=== PATIENT | female | born 1980 | race Caucasian/White ===

== ENCOUNTER 2020-10-07 12:04 | Emergency (ER) | payer OTHER, SELFPAY ==
[2020-10-07 12:33] VITALS: BP 101/63; PULSE 95; RESP 18; TEMP 36
[2020-10-07 15:14] VITALS: BP 123/79; PULSE 80; RESP 18; TEMP 37.3; O2SAT 98
[2020-10-07] MEDS: Ketorolac Tromethamine 30 MG/ML VIAL IVPUSH (16:16)
[2020-10-07 16:19] LABS: MANUAL DIFF FLAG NO
[2020-10-07 16:20] LABS: Basophils Absolute Auto 0.1 X10*3/uL (0.0-0.2); Basophils Percent Auto 0.4 % (0-2); Eosinophils Absolute Auto 0.3 X10*3/uL (0.0-0.4); Eosinophils Percent Auto 2.2 % (0-4); Hematocrit 34.6 % (37-47); Hemoglobin 11.2 g/dl (12.0-16.0); Imm Gran Abs Auto 0.11 X10*3/uL (0.00-0.03); Imm Gran Pct Auto 0.8 % (0.0-0.4); Lymphocytes Absolute Auto 3.6 X10*3/uL (1.2-4.9); Mean Corpuscular HGB Conc 32.4 g/dl (31.0-35.0); Mean Corpuscular Hemoglobin 28.7 pg (27.0-33.0); Mean Corpuscular Volume 88.7 fL (80-98); Mean Platelet Volume 8.4 fL (9.4-12.3); Monocytes Percent Auto 7.5 % (2-11); Neutrophils Absolute Auto 8.8 X10*3/uL (2.0-8.3); Neutrophils Percent Auto 63.1 % (45-73); Platelet Count 458 X10*3/uL (160-400); Red Cell Distribution Width 12.6 % (11.0-16.0); White Blood Count 13.9 X10*3/uL (4.8-10.8)
[2020-10-07 16:27] LABS: Prothrombin Time 12.2 SEC (10.8-13.0)
--- NOTE | 2020-10-07 17:14 | ED_ITS ---
HPI - Abdominal Pain General Chief Complaint: Abdominal Pain Stated Complaint: on chemo in pain Time Seen by Provider: 10/07/20 15:19 Source: patient Mode of arrival: ambulatory Limitations: no limitations History of Present Illness HPI narrative: patient presents to ED for right-sided abdominal pain. Patient has history of liver cancer and today started having pain since yesterday. Patient states nausea, but no vomiting. Patient states no chest pain, shortness of breath, or pain inspiration. patient denies any swelling of lower extremity, calf pain, redness, fever, or chills. Patient denies any dysuria or hematuria. Patient states not able to take narcotics due to her being on Vivitrol. Patient states she is presently on chemo. Related Data Previous Rx's Medication Instructions Recorded prednisone 40 mg PO DAILY #10 tab 10/07/20 pregabalin [Lyrica] 25 mg PO TID #9 cap 10/07/20 Allergies Allergy/AdvReac Type Severity Reaction Status Date / Time No Known Allergies Allergy Unverified 08/06/20 19:06 [No Known Allergies*] Review of Systems Review of Systems Yes all other systems are reviewed and are negative Constitutional: Reports as per HPI and Reports no additional constitutional complaints Eyes: Reports as per HPI and Reports no additional eye complaints Reports system reviewed and no additional complaints, except as documented and Reports as per HPI Cardiovascular: Reports as per HPI, Reports no additional cardiovascular compl aints, Denies chest pain, Denies chest pain at rest, Denies dyspnea, Denies dyspnea on exertion, Denies orthopnea and Denies paroxysmal nocturnal dyspnea Respiratory: Reports as per HPI, Reports no additional respiratory complaints, Denies cough, Denies pain on inspiration, Denies dyspnea and Denies dyspnea on exertion Gastrointestinal: Reports abdominal pain, Denies belching, Denies melena and Reports nausea Genitourinary: Reports no additional female genitourinary complaints and Reports as per HPI Musculoskeletal: Reports no additional musculoskeletal complaints and Reports as per HPI Reports system reviewed and no additional complaints, except as documented and Reports as per HPI Psychiatric: Reports no additional psychiatric complaints and Reports as per HPI Physical Exam Vital Signs: Vital Signs: Last Vital Signs Temp 98.2 F 10/07/20 17:22 Pulse 71 10/07/20 17:22 Resp 14 10/07/20 17:22 BP 123/74 10/07/20 17:22 Pulse Ox 98 10/07/20 17:22 Body Mass Index 0.0 Const: General: cooperative, healthy appearing, comfortable, no acute distress and well developed HENMT: Head: Yes normal to inspection and Yes No palpable skull fracture present Eyes: General: appearance normal, both eyes and all related structures Neck: Neck: Yes normal visual inspection, Yes full ROM and Yes no lymphadenopathy Chest: Chest palpation & inspection: normal inspection of the chest, normal palpation of entire chest wall and no localized rib tenderness Resp: Effort & Inspection: normal respiratory effort and able to speak in complete sentences Cardio: Jugular venous distension: no JVD Heart sounds: S1 normal heart sound present and S2 normal heart sound present GI: Inspection: Yes normal to inspection and No abdominal wall ecchymosis Palpation (GI): Soft to palpation, not firm, Tenderness to palpation present (GI) in the RLQ and in the RUQ, no guarding and not rigid : General: No CVA tenderness and Yes no CVA tenderness Back/Spine/Pelvis: Back: no CVA tenderness, No CVA tenderness and No back tenderness Skin: General skin exam: no rashes or lesions noted Neuro: General: patient oriented x3, gait normal and CN's II-XI intact bilaterally Cranial nerves: Yes CN's II-XII intact bilaterally Extrem: General: Yes normal to inspection and Yes full ROM Psych: Appearance: grossly normal, well kempt and not disheveled Course Course Course Narrative: patient will have basic labs medication. Patient states she cannot take narcotics due to her being on Vivitrol. Patient denies any chest pain, shortness of breath, or chest pain on inspiration. Patient states right- sided abdominal pain and known liver cancer. Not suspecting PR or PE. EKG not indicated. Will send patient for abdominal CT scan to make sure there is no bowel obstruction or any abdominal emergent etiology. Reevaluation(s) Reevaluation #1: Patient labs so far came back at baseline. Patient does not want to stay for abdominal CT scan. Patient states he seeing her surgeon tomorrow and rather be evaluated by her surgeon. Patient explained risk of , disability, change in lifestyle, and worsening metastatic cancer that may need to be addressed. patient informed of these risks and still would like to sign against medical advice. Patient also requests prescription for Lyrica which helps with her pain and also prednisone. Time: 17:28 MDM - Abdominal Pain MDM Narrative Medical decision making narrative: abdominal pain Lab Data Result diagrams: 10/07/20 16:13 10/07/20 16:13 Labs: Lab Results 10/07/20 10/07/20 10/07/20 Range/Units 16:13 16:13 16:13 WBC 13.9 H (4.8-10.8) X10*3/uL RBC 3.90 L (4.20-5.50) X10*6/uL Hgb 11.2 L (12.0-16.0) g/dl Hct 34.6 L (37-47) % MCV 88.7 (80-98) fL MCH 28.7 (27.0-33.0) pg MCHC 32.4 (31.0-35.0) g/dl RDW 12.6 (11.0-16.0) % Plt Count 458 H (160-400) X10*3/uL MPV 8.4 L (9.4-12.3) fL Immature Gran % (Auto) 0.8 H (0.0-0.4) % Neut % (Auto) 63.1 (45-73) % Lymph % (Auto) 26.0 (20-40) % [place] % (Auto) 7.5 (2-11) % Eos % (Auto) 2.2 (0-4) % Baso % (Auto) 0.4 (0-2) % Lymph # (Auto) 3.6 (1.2-4.9) X10*3/uL [place] # (Auto) 1.0 (0.1-1.2) X10*3/uL Eos # (Auto) 0.3 (0.0-0.4) X10*3/uL Baso # (Auto) 0.1 (0.0-0.2) X10*3/uL Abs Immat Gran (auto) 0.11 H (0.00-0.03) X10*3/uL Absolute Neuts (auto) 8.8 H (2.0-8.3) X10*3/uL Absolute Nucleated RBC 0.000 (0.0-0.012) X10*3/uL Nucleated RBC % (auto) 0.0 (0.0-0.2) /100WBC PT 12.2 (10.8-13.0) SEC INR 1.0 (0.9-1.1) APTT 35.0 (24.1-38.0) SEC Sodium 135 (135-145) mmol/L Potassium 4.5 (3.3-5.1) mmol/l Chloride 101 (96-108) mmol/L Carbon Dioxide 25 (22-29) mmol/L Anion Gap 14 (12-20) BUN 22 H (9-16) mg/dL Creatinine 0.79 (0.5-1.4) mg/dL Estim Creat Clear Calc 0.2 Estimated GFR > 60 Random Glucose 90 (60-115) mg/dL Calcium 9.0 (8.4-10.2) mg/dL Total Bilirubin 0.6 (0.0-1.0) mg/dL Direct Bilirubin 0.3 (0.0-0.5) mg/dL AST 52 H (5-31) U/L ALT 147 H (0-31) U/L Alkaline Phosphatase 174 H (39-117) U/L Total Protein 7.4 (6.5-8.0) g/dL Albumin 3.8 (3.5-5.0) g/dL Lipase 38 (8-78) U/L Urine Color Urine Appearance Urine pH (5.0-8.0) Ur Specific [place] (1.005-1.025) Urine Protein (NEG-TRACE) MG/DL Urine Glucose (UA) (NEG) MG/DL Urine Ketones (NEG) MG/DL Urine Blood (NEG) Urine Nitrite (NEG) Ur Leukocyte Esterase (NEG) Urine Test (NEGATIVE) 10/07/20 Range/Units 17:12 WBC (4.8-10.8) X10*3/uL RBC (4.20-5.50) X10*6/uL Hgb (12.0-16.0) g/dl Hct (37-47) % MCV (80-98) fL MCH (27.0-33.0) pg MCHC (31.0-35.0) g/dl RDW (11.0-16.0) % Plt Count (160-400) X10*3/uL MPV (9.4-12.3) fL Immature Gran % (Auto) (0.0-0.4) % Neut % (Auto) (45-73) % Lymph % (Auto) (20-40) % [place] % (Auto) (2-11) % Eos % (Auto) (0-4) % Baso % (Auto) (0-2) % Lymph # (Auto) (1.2-4.9) X10*3/uL [place] # (Auto) (0.1-1.2) X10*3/uL Eos # (Auto) (0.0-0.4) X10*3/uL Baso # (Auto) (0.0-0.2) X10*3/uL Abs Immat Gran (auto) (0.00-0.03) X10*3/uL Absolute Neuts (auto) (2.0-8.3) X10*3/uL Absolute Nucleated RBC (0.0-0.012) X10*3/uL Nucleated RBC % (auto) (0.0-0.2) /100WBC PT (10.8-13.0) SEC INR (0.9-1.1) APTT (24.1-38.0) SEC Sodium (135-145) mmol/L Potassium (3.3-5.1) mmol/l Chloride (96-108) mmol/L Carbon Dioxide (22-29) mmol/L Anion Gap (12-20) BUN (9-16) mg/dL Creatinine (0.5-1.4) mg/dL Estim Creat Clear Calc Estimated GFR Random Glucose (60-115) mg/dL Calcium (8.4-10.2) mg/dL Total Bilirubin (0.0-1.0) mg/dL Direct Bilirubin (0.0-0.5) mg/dL AST (5-31) U/L ALT (0-31) U/L Alkaline Phosphatase (39-117) U/L Total Protein (6.5-8.0) g/dL Albumin (3.5-5.0) g/dL Lipase (8-78) U/L Urine Color YELLOW Urine Appearance CLEAR Urine pH 6.5 (5.0-8.0) Ur Specific [place] 1.015 (1.005-1.025) Urine Protein NEG (NEG-TRACE) MG/DL Urine Glucose (UA) NEG (NEG) MG/DL Urine Ketones NEG (NEG) MG/DL Urine Blood NEG (NEG) Urine Nitrite NEG (NEG) Ur Leukocyte Esterase NEG (NEG) Urine Test NEGATIVE (NEGATIVE) Discharge Plan Discharge Clinical Impression: Abdominal pain Patient Disposition: Left Against Medical Advice Instructions: Abdominal Pain (ED) Additional Instructions: return to the ED immediately for worsening abdominal pain, chest pain, shortness of breath, swelling of lower extremity, calf pain, constipation, diarrhea, chest pain on inspiration, nausea, vomiting, or any other concerning symptoms. Please follow up with your surgeon Abby Prescriptions: New prednisone 20 mg tablet 40 mg PO DAILY Qty: 10 RF: 0 pregabalin [Lyrica] 25 mg capsule 25 mg PO TID Qty: 9 RF: 0 Stand Alone Forms: Against Medical Advice, Work/School Release Print Language: Hebrew [facility] Social History Social History Alcohol intake: never Smoked in Last 30 Days: No Use of substances other than those prescribed or required for medical reasons: No Advance Directives: No Advance Directives Information Provided: Yes
[2020-10-07 17:15] LABS: Alanine Aminotransferase 147 U/L (0-31); Albumin Level 3.8 g/dL (3.5-5.0); Alkaline Phosphatase 174 U/L (39-117); Anion Gap 14 (12-20); Aspartate Amino Transferase 52 U/L (5-31); Bilirubin Direct 0.3 mg/dL (0.0-0.5); Bilirubin Total 0.6 mg/dL (0.0-1.0); Blood Urea Nitrogen 22 mg/dL (9-16); Carbon Dioxide 25 mmol/L (22-29); Chloride 101 mmol/L (96-108); Creatinine Clr Calc Pharmacy 0.2; Estimated Glomerular Filt Rate > 60; Glucose Random 90 mg/dL (60-115); Lipase 38 U/L (8-78); Potassium 4.5 mmol/l (3.3-5.1); Sodium 135 mmol/L (135-145); Total Protein 7.4 g/dL (6.5-8.0)
[2020-10-07 17:22] VITALS: BP 123/74; PULSE 71; RESP 14; TEMP 36.8; O2SAT 98
[2020-10-07] MEDS: Pregabalin 50 MG CAPSULE PO (17:22)
[2020-10-07 17:25] LABS: Glucose Urine UA NEG (NEG); Leukocyte Esterase Urine NEG (NEG); Nitrite Urine NEG (NEG); PH 6.5 (5.0-8.0); Specific Gravity - Urine 1.015 (1.005-1.025); Urine Blood NEG (NEG); Urine Ketones NEG (NEG); Urine Protein NEG (NEG-TRACE)
[2020-10-07 17:28] LABS: Color Urine YELLOW
[2020-10-07 17:29] LABS: Appearance Urine CLEAR; UPreg QC Valid YES; Urine Pregnancy NEGATIVE (NEGATIVE)
--- NOTE | 2020-10-07 17:56 | PC.NURSE ---
Pt asking to leave AMA, understood and verbalized risks of ama. plan for surgeon f/u in the am
== END 2020-10-07 18:06 | disposition left against medical advice (07) ==
PROVIDERS: Physician Assistant; Emergency Provider Emergency Medicine
DX: R10.9 Unspecified abdominal pain (principal); G89.3 Neoplasm related pain (acute) (chronic); Z79.899 Other long term (current) drug therapy
CPT/HCPCS: 36415; 80053; 80076; 81003; 81025; 82248; 83690; 85025; 85610; 85730; 99284; J1642; J1885

== ENCOUNTER 2020-10-13 18:50 | Emergency (ER) | payer OTHER, SELFPAY ==
[2020-10-13 19:12] VITALS: BP 119/79; PULSE 88; RESP 16; TEMP 37.2; O2SAT 97; BMI 37.5
== END 2020-10-13 20:05 | disposition left against medical advice (07) ==
PROVIDERS: Emergency Provider Emergency Medicine
DX: M54.5 Low back pain (principal)
CPT/HCPCS: 99282

== ENCOUNTER 2020-10-14 13:26 | Emergency (ER) | payer OTHER, SELFPAY ==
[2020-10-14 13:43] VITALS: BP 134/77; PULSE 79; RESP 18; TEMP 37; O2SAT 100; BMI 37.5
--- NOTE | 2020-10-14 13:47 | ED.GENADULT ---
HPI - General Adult General Chief complaint: Abdominal Pain Stated complaint: CANCER,NERVE PAIN Time Seen by Provider: 10/14/20 13:47 Related Data Previous Rx's Medication Instructions Recorded prednisone 40 mg PO DAILY #10 tab 10/07/20 pregabalin [Lyrica] 25 mg PO TID #9 cap 10/07/20 Allergies Allergy/AdvReac Type Severity Reaction Status Date / Time No Known Allergies Allergy Unverified 08/06/20 19:06 [No Known Allergies*] [facility] Past Medical History Medical History (Updated 10/13/20 @ 19:17 by Tatiana La) Cancer Social History Social History Alcohol intake: never Advance Directives: No Advance Directives Information Provided: Yes Discharge Plan Discharge Prescriptions: No Action prednisone 20 mg tablet 40 mg PO DAILY Qty: 10 RF: 0 pregabalin [Lyrica] 25 mg capsule 25 mg PO TID Qty: 9 RF: 0
[2020-10-14] MEDS: ondansetron HCL 4 MG/2 ML VIAL IVPUSH (14:33)
[2020-10-14] MEDS: Morphine Sulfate 4 MG/ML CARTRIDGE IVPUSH (14:34)
[2020-10-14 14:39] LABS: MANUAL DIFF FLAG NO
--- NOTE | 2020-10-14 14:40 | ED_ITS ---
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 Ferro has a plan to see surgeon soon. Patient does have a history of substance abuse and narcotic overdose within last 2 months MD elicited complaint: abdominal pain Pertinent past history: none Onset (ago): week(s) (2) Pain Consistency: constant Location: RUQ Severity: moderate Quality: aching Radiation: R flank Migration to: no migration Exacerbating factors: movement Relieving factors: nothing Associated symptoms: denies other symptoms Related Data Previous Rx's Medication Instructions Recorded prednisone 40 mg PO DAILY #10 tab 10/07/20 pregabalin [Lyrica] 25 mg PO TID #9 cap 10/07/20 lidocaine [Lidoderm] 1 patch TOPICAL DAILY #30 ea 10/14/20 Allergies Allergy/AdvReac Type Severity Reaction Status Date / Time No Known Allergies Allergy Unverified 08/06/20 19:06 [No Known Allergies*] Review of Systems Review of Systems REVIEW OF SYSTEMS: Pertinent positives and negatives are stated above in the history. GEN: no fever, chills, fatigue HEENT: no nasal congestion, sore throat, ear pain NEURO: no headache, dizziness, focal weakness PULM: no cough, shortness of breath CV: no chest pain, palpitations, LE edema ABD: no vomiting, diarrhea : no dysuria, urgency, frequency no urine incontinence SKIN: no rash ROS otherwise negative x 10 Physical Exam Vital Signs: Vital Signs: Last Vital Signs Temp 100.4 F 10/14/20 15:41 Pulse 85 10/14/20 15:41 Resp 16 10/14/20 15:41 BP 113/65 10/14/20 15:41 Pulse Ox 98 10/14/20 15:41 Body Mass Index 37.5 Const: General: cooperative, healthy appearing and acute distress moderate Orientation/consciousness: oriented to person, oriented to place, oriented to time and patient oriented x3 HENMT: Head: Yes normal to inspection Ears: hearing grossly normal bilaterally Mouth: moist mucous membranes Throat: Yes posterior oropharynx normal Eyes: General: appearance normal, both eyes and all related structures Chest: Chest palpation & inspection: normal inspection of the chest Resp: Effort & Inspection: normal respiratory effort Auscultation: clear to auscultation bilaterally, no crackles and no rales Cardio: Palpation: normal PMI Rate: regular rate Rhythm: regular rhythm Heart sounds: S1 normal heart sound present and S2 normal heart sound present GI: Inspection: Yes normal to inspection Palpation (GI): Soft to palpation and Tenderness to palpation present (GI) in the RUQ Percussion: Yes normal to percussion Auscultation: normal bowel sounds : General: Yes CVA tenderness ( right flank) Back/Spine/Pelvis: Back: CVA tenderness ( right flank) Thoracic/Lumbar Spine: thoracic and lumbar spine normal to inspection Skin: General skin exam: no rashes or lesions noted Neuro: General: oriented to person, oriented to place, oriented to time, patient oriented x3, moves all extremities and Normal light touch and pain sensa tion MDM - Abdominal Pain MDM Narrative Medical decision making narrative: patient with ovarian cancer stage IIIB with Mets to liver history of substance abuse and right psoas abscess came here for pain control. Patient was seen by pain clinic yesterday advise Lidoderm patch for now. Patient has a CT scan done on 10/10 at [facility] which showed fluid collection in the right psoas muscle and increasing size of right liver lesion. The case discussed the case with patient's oncologist Dr. Ferro at [facility] who is aware of the CT scan findings advise that she is planning her to see surgeon and at this time she needs only pain control patient also on prednisone for last 4 days with leukocytosis patient denied any fever or chills Lab Data Attestation: I reviewed the patient's lab results. Result diagrams: 10/14/20 14:30 10/14/20 14:30 Labs: Lab Results 10/14/20 10/14/20 10/14/20 Range/Units 14:30 14:30 14:39 WBC 15.2 H (4.8-10.8) X10*3/uL RBC 3.69 L (4.20-5.50) X10*6/uL Hgb 10.8 L (12.0-16.0) g/dl Hct 33.0 L (37-47) % MCV 89.4 (80-98) fL MCH 29.3 (27.0-33.0) pg MCHC 32.7 (31.0-35.0) g/dl RDW 12.5 (11.0-16.0) % Plt Count 454 H (160-400) X10*3/uL MPV 8.5 L (9.4-12.3) fL Immature Gran % (Auto) 0.7 H (0.0-0.4) % Neut % (Auto) 75.1 H (45-73) % Lymph % (Auto) 17.0 L (20-40) % [place] % (Auto) 6.0 (2-11) % Eos % (Auto) 0.9 (0-4) % Baso % (Auto) 0.3 (0-2) % Lymph # (Auto) 2.6 (1.2-4.9) X10*3/uL [place] # (Auto) 0.9 (0.1-1.2) X10*3/uL Eos # (Auto) 0.1 (0.0-0.4) X10*3/uL Baso # (Auto) 0.1 (0.0-0.2) X10*3/uL Abs Immat Gran (auto) 0.10 H (0.00-0.03) X10*3/uL Absolute Neuts (auto) 11.4 H (2.0-8.3) X10*3/uL Absolute Nucleated RBC 0.000 (0.0-0.012) X10*3/uL Nucleated RBC % (auto) 0.0 (0.0-0.2) /100WBC Sodium 136 (135-145) mmol/L Potassium 4.5 (3.3-5.1) mmol/l Chloride 101 (96-108) mmol/L Carbon Dioxide 26 (22-29) mmol/L Anion Gap 14 (12-20) BUN 16 (9-16) mg/dL Creatinine 0.81 (0.5-1.4) mg/dL Estim Creat Clear Calc 119.7 Estimated GFR > 60 Random Glucose 126 H D (60-115) mg/dL Calcium 8.7 (8.4-10.2) mg/dL Total Bilirubin 0.3 (0.0-1.0) mg/dL Direct Bilirubin 0.2 (0.0-0.5) mg/dL AST 18 D (5-31) U/L ALT 40 H (0-31) U/L Alkaline Phosphatase 132 H D (39-117) U/L Total Protein 7.0 (6.5-8.0) g/dL Albumin 3.4 L (3.5-5.0) g/dL Lipase 36 (8-78) U/L Urine Color YELLOW Urine Appearance CLEAR Urine pH 6.5 (5.0-8.0) Ur Specific [place] 1.015 (1.005-1.025) Urine Protein NEG (NEG-TRACE) MG/DL Urine Glucose (UA) NEG (NEG) MG/DL Urine Ketones NEG (NEG) MG/DL Urine Blood NEG (NEG) Urine Nitrite NEG (NEG) Ur Leukocyte Esterase NEG (NEG) Urine RBC 0 (0) /HPF Urine WBC 0 (0-4) /HPF Ur Squamous Epith Cells 1+ /LPF Urine Bacteria TRACE /LPF Discharge Plan Discharge Clinical Impression: Back pain Qualifiers: Back pain location: back pain in other location Chronicity: acute Qualified Code(s): M54.9 - Dorsalgia, unspecified Patient Disposition: Home, Self-Care Instructions: Flank Pain (ED) Additional Instructions: follow-up with your oncologist for further care and management Prescriptions: New lidocaine [Lidoderm] 5 % adhesive patch,medicated 1 patch topical DAILY Qty: 30 RF: 0 No Action prednisone 20 mg tablet 40 mg PO DAILY Qty: 10 RF: 0 pregabalin [Lyrica] 25 mg capsule 25 mg PO TID Qty: 9 RF: 0 PMFSH Past Medical History Medical History Cancer Social History Social History Alcohol intake: never Smoking Status: Unknown if ever smoked Use of substances other than those prescribed or required for medical reasons: No Advance Directives: No Advance Directives Information Provided: Yes
[2020-10-14 14:42] LABS: Basophils Absolute Auto 0.1 X10*3/uL (0.0-0.2); Basophils Percent Auto 0.3 % (0-2); Eosinophils Absolute Auto 0.1 X10*3/uL (0.0-0.4); Eosinophils Percent Auto 0.9 % (0-4); Hemoglobin 10.8 g/dl (12.0-16.0); Imm Gran Pct Auto 0.7 % (0.0-0.4); Lymphocytes Absolute Auto 2.6 X10*3/uL (1.2-4.9); Mean Corpuscular HGB Conc 32.7 g/dl (31.0-35.0); Mean Corpuscular Hemoglobin 29.3 pg (27.0-33.0); Mean Corpuscular Volume 89.4 fL (80-98); Mean Platelet Volume 8.5 fL (9.4-12.3); Monocytes Absolute Auto 0.9 X10*3/uL (0.1-1.2); Neutrophils Absolute Auto 11.4 X10*3/uL (2.0-8.3); Neutrophils Percent Auto 75.1 % (45-73); Platelet Count 454 X10*3/uL (160-400); Red Blood Count 3.69 X10*6/uL (4.20-5.50); Red Cell Distribution Width 12.5 % (11.0-16.0); White Blood Count 15.2 X10*3/uL (4.8-10.8)
[2020-10-14 14:50] LABS: Glucose Urine UA NEG (NEG); Leukocyte Esterase Urine NEG (NEG); Nitrite Urine NEG (NEG); PH 6.5 (5.0-8.0); Specific Gravity - Urine 1.015 (1.005-1.025); Urine Blood NEG (NEG); Urine Ketones NEG (NEG); Urine Protein NEG (NEG-TRACE)
[2020-10-14 14:59] LABS: Appearance Urine CLEAR; Color Urine YELLOW
--- NOTE | 2020-10-14 15:00 | PC.NURSE ---
Patient arrives reporting 910 flank/lower back pain. Oncology patient, known ovarian cancer, and recently while receiving chemotherapy began having this new pain. Reports received from [facility], patient now has new lesion to liver and muscle. Patient appears uncomfortable. Respirations regular and even. Skin PWD. Port accessed and labs drawn. Patient medicated with Morphine and Zofran.
[2020-10-14 15:07] LABS: Bacteria Urine TRACE /LPF; RBC Urine 0 /HPF (0); Squamous Epithelial Cell Urine 1+ /LPF; WBC Urine 0 /HPF (0-4)
[2020-10-14 15:10] LABS: Alanine Aminotransferase 40 U/L (0-31); Albumin Level 3.4 g/dL (3.5-5.0); Alkaline Phosphatase 132 U/L (39-117); Anion Gap 14 (12-20); Aspartate Amino Transferase 18 U/L (5-31); Bilirubin Direct 0.2 mg/dL (0.0-0.5); Bilirubin Total 0.3 mg/dL (0.0-1.0); Blood Urea Nitrogen 16 mg/dL (9-16); Calcium 8.7 mg/dL (8.4-10.2); Carbon Dioxide 26 mmol/L (22-29); Chloride 101 mmol/L (96-108); Creatinine Clr Calc Pharmacy 119.7; Estimated Glomerular Filt Rate > 60; Glucose Random 126 mg/dL (60-115); Lipase 36 U/L (8-78); Potassium 4.5 mmol/l (3.3-5.1); Sodium 136 mmol/L (135-145)
[2020-10-14] MEDS: Ketorolac Tromethamine 30 MG/ML VIAL IVPUSH (15:18)
[2020-10-14 15:41] VITALS: BP 113/65; PULSE 85; RESP 16; TEMP 38; O2SAT 98
[2020-10-14] MEDS: Lidocaine 4 % Patch ADH..PATCH 1 PATCH TRANSDERMA (16:25)
== END 2020-10-14 16:28 | disposition home or self-care (01) ==
PROVIDERS: Emergency Provider Internal Medicine
DX: M54.9 Dorsalgia, unspecified (principal); M79.2 Neuralgia and neuritis, unspecified; R10.11 Right upper quadrant pain; C56.9 Malignant neoplasm of unspecified ovary; C78.7 Secondary malignant neoplasm of liver and intrahepatic bile duct; Z79.899 Other long term (current) drug therapy
CPT/HCPCS: 36415; 80048; 80076; 81001; 83690; 85025; 96374; 96375; 99284; J1885; J2270; J2405